=== PATIENT | female | born 1970 | race Caucasian/White ===

== ENCOUNTER 2017-01-13 15:14 | Emergency (ER) | payer BC, MEDICARE ==
[2017-01-13] MEDS ORDERED: ASPIRIN 81 MG TAB.CHEW PO ONE (15:29)
[2017-01-13] MEDS ORDERED: NITROGLYCERIN 0.4 MG/TAB BTL SL ONE (15:29)
[2017-01-13] MEDS ORDERED: ASPIRIN 325 MG TABLET.DR ONE (15:35)
[2017-01-13] MEDS ORDERED: ASPIRIN 81 MG TAB.CHEW ONE (15:36)
[2017-01-13 15:39] LABS: Hematocrit 42.3 % (37.0-47.0); Hemoglobin 14.3 gm/dL (12.5-16.0); Mean Cell Volume 92.8 fl (78-100); Mean Corpuscular Hemoglobin 31.4 pg (27-31); Mean Corpuscular Hgb Conc 33.8 g/dl (32-36); Mean Platelet Volume 11.2 fl (6.0-9.5); Neutrophil # 3.9 K/mm3 (1.3-6.0); Neutrophil % 47.3 % (42-75.0); Platelet Count 161 K/mm3 (150-450); Red Blood Count 4.56 M/mm3 (4.2-5.4); Red Cell Distribution Width 13.2 % (11.5-14.0); White Blood Count 8.2 K/mm3 (4.0-10.5)
[2017-01-13 15:53] LABS: Prothrombin Time (Patient) 10.4 Seconds (9.4-11.4)
[2017-01-13 15:54] LABS: Partial Thrombolplastin Time 24.6 Seconds (24-32)
[2017-01-13 15:59] LABS: ALT 31 U/L (19-67); AST 14 U/L (0-48); Albumin * 3.3 gm/dl (3.4-5.0); Alkaline Phosphatase * 57 U/L (50-170); Anion Gap 12.9 mmol/L (6.8-13.8); BUN/Creatinine Ratio 13.6 (9.0-21.6); Bilirubin, Total 0.3 mg/dL (0.0-1.1); Blood Urea Nitrogen 11 mg/dL (3-23); Ca. Corrected For Albumin 9.3 mg/dL (8.4-10.2); Calcium * 9.1 mg/dL (7.9-10.9); Carbon Dioxide 27.7 mmol/L (24-32.6); Chloride 105 mmol/L (97-106); Glucose * 94 mg/dL (70-110); Potassium 4.6 mmol/L (3.4-4.6); Sodium 141 mmol/L (132-142); Total Protein 6.7 gm/dL (6.2-8.2); Troponin I Less than 0.017 ng/ml (0.00-0.10)
--- NOTE | 2017-01-13 17:02 | ERNOTE ---
Chest Pain/Cardiac HPI Date of Service: 01/13/17 Chief Complaint: Chest Pain Time Seen by Provider: 01/13/17 15:51 Source: patient Exam Limitations: no limitations Immunizations: IMMUNIZATION HX Immunizations Up to Date Yes Allergies/Adverse Reactions: Allergies infliximab [From Remicade] Allergy (Verified 01/13/17 15:26) Hives tetracycline [Tetracycline] Allergy (Verified 01/13/17 15:26) Hives Home Medications: HOME MEDICATIONS Abatacept/Maltose [Orencia 250 mg Vial] 1,000 mg IV Q28D 12/31/13 [Last Taken ] Pantoprazole Sodium [Protonix] 40 mg PO DAILY 12/31/13 [Last Taken 01/03/14] Cholecalciferol (Vitamin D3) [Vitamin D3] 1,000 units PO DAILY 01/01/14 [Last Taken 01/03/14] Albuterol Sulfate/Ipratropium [Duoneb 2.5-0.5MG/3ML Soln] 3 ml IH Q4H #150 nebu 01/06/14 [Last Taken Unknown] Diclofenac Sodium [Voltaren] 75 mg PO BID 01/25/15 [Last Taken Unknown] Gabapentin 300 mg PO TID 01/13/17 [Last Taken Unknown] Ropinirole HCl 5 mg PO DAILY 01/13/17 [Last Taken Unknown] predniSONE [Prednisone] See Taper PO DAILY #18 tablet 01/13/17 [Last Taken Unknown] traZODone HCL [Trazodone HCl] 100 mg PO HS 01/13/17 [Last Taken Unknown] Narrative: 49-year-old female presenting to the emergency room with chest pain that she has had since yesterday at 8 PM. States pain is under her right and left breast. She states the pain is consistent. Date (Duration): 01/13/17 Timing: constant Severity/Quality: mild Location: substernal, other - under both breast Chest Pain Radiation: no radiation Activities at Onset: rest Modifying Factors - Improves: Present: nitroglycerin - in ed Modifying Factors - Worsens: Present: movement Nitro Today/Relief: 0.4 mg x 1 Aspirin Treatment Today: 325 mg x 1 Associated Symptoms: Present: cough. Absent: headache, dizziness, syncope, shortness of breath, nausea, vomiting, abdominal pain Prior Chest Pain/Cardiac Workup: Reports: prior chest pain Prior Treatment: Reports: recently seen Review of Systems - Review of Systems Constitutional: Present: no symptoms reported EYE: Present: no symptoms reported ENT: Present: no symptoms reported Respiratory: Present: no symptoms reported Cardiology: Present: See HPI Gastrointestinal/Abdominal: Present: no symptoms reported Genitourinary: Present: no symptoms reported Musculoskeletal: Present: other - rib pain under bilateral breasts Skin: Present: no symptoms reported Neurological: Present: no symptoms reported Endocrine: Present: no symptoms reported Hematologic/Lymphatic: Present: no symptoms reported Psych: Present: no symptoms reported - Patient's Past Medical History Patient History - Medical: Chronic Pain, Depression, Fibromyalgia, Osteoarthritis, Rheumatoid Arthritis, Other Patient History - Cardiac/Respiratory: Bronchitis Patient History - Cancer: No Hx of Cancer Patient History - Surgical Procedures: Cholecystectomy, Hysterectomy, T & A, Other Patient History - Other: None - Family History Mother Family History - Medical: Diabetes Type 2 Insulin Dependent, Fibromyalgia Family History - Cardiac/Respiratory: Hypertension Father Family History - Medical: Alcohol Abuse, Arthritis, Chronic Pain, Depression, Osteoarthritis, Rheumatoid Arthritis, Seizures Family History - Cardiac/Respiratory: Cardiomyopathy, CVA/Stroke, Myocardial Infarction, TIA Brother Family History - Medical: Alcohol Abuse, Glaucoma, Seizures Sister Family History - Medical: Depression - Social History Living Situations: spouse Abuse History: No History of abuse Psych History: Hx of Depression Smoking Status: Current every day smoker Have you smoked in the past 12 months: Yes Alcohol Use: none Drug Use: none - Immunizations Immunizations Up to Date: Yes Physical Exam - Physical Exam Narrative: 46-year-old female presenting to the emergency room with chest pain. She points to having pain under both of her breasts along her rib line. States this started last night at 8:00 and it has continued to get worse. Patient denies radiation of the pain nausea vomiting diaphoresis or shortness of breath. Patient states that this has happened before her primary care is putting her in touch with the GI doctor. She also states she has a history of bronchitis. It has had a cough over the last few days. General Appearance: Present: wd/wn, alert, no apparent distress Eye Exam: Normal inspection: bilateral Ears, Nose, Throat: Present: normal ENT inspection Neck: Present: normal inspection Respiratory: Present: no respiratory distress, wheezing Cardiovascular/Chest: Present: regular rate, rhythm Gastrointestinal/Abdominal: Present: normal bowel sounds Back Exam: Present: normal inspection Extremity Exam: Present: normal inspection Neurological Exam: Present: alert, oriented, normal mood/affect Skin Exam: Present: normal color Lymphatic Exam: Present: no adenopathy ED Progress - Results and Orders Patient's Lab Results:: I have reviewed the patient's lab results. - Vital Signs Patient's Vital Signs:: I have reviewed the patient's vital signs. Vital Signs: Vital Signs 01/13/17 01/13/17 01/13/17 15:23 15:30 15:35 Temperature 36.7 C Pulse Rate 77 78 80 Respiratory 14 10 L Rate Blood Pressure 124/75 125/80 O2 Sat by Pulse 96 96 Oximetry 01/13/17 01/13/17 16:20 16:35 Temperature Pulse Rate 72 71 Respiratory 12 12 Rate Blood Pressure 108/79 115/76 O2 Sat by Pulse 96 94 Oximetry - EKG EKG: NSR EKG read: Reviewed by me EKG Comments: Operative by ER attending, - X-Ray X-Ray #1 X-Ray: chest Interpretation: Reviewed by me X-ray Comments: TECHNIQUE: PA and lateral views of the chest were obtained. 2 images. COMPARISONS: 01/25/2015 FINDINGS: Chest PA Lateral * Hyperinflated lung volumes. No consolidation or mass. Central bronchial wall prominence noted. Calcified granuloma of the right lung base noted. No pneumothorax or pleural fluid collections. Cardiac and mediastinal silhouettes are normal. Trachea is in normal position. Bones are normal. IMPRESSION: Findings compatible with acute or chronic bronchitis versus reactive airways disease. Electronically signed by Adry Ibrahim M.D.. - Progress/Reassessment Chief Complaint: Chest Pain Progress:: Pain free at discharge Departure - Departure Clinical Impression: Bronchitis Condition: Stable Instructions: Acute Bronchitis, Chronic Bronchitis Additional Instructions: Follow-up with your primary care in the next 2-3 days. Continue home medications as directed. Follow steroid taper as directed. Return to the emergency room if you have chest pain, shortness of breath or any new symptoms or symptoms that are not controlled with [id number] pain medication. Prescriptions: predniSONE [Prednisone] See Taper PO DAILY #18 tablet
--- OUTSIDE RECORDS SUMMARY | 2017-01-13 17:07 | XMS REPORT | Continuity of Care Document ---
:1970 Author Organization [facility] [address] Care Team Providers Name Role Phone Bibi Clark Ranjan Primary Care Provider [phone] Source Comments This disclosure is being made pursuant to the [employer] program and maynot contain all information available regarding this patient.[facility] Active Allergies and Adverse Reactions Allergen Noted Date Severity Reactions Comments Albuterol 07/01/2014 Other (See Comments) Sever headache Infliximab 07/01/2014 Low Rash Tetracycline 07/01/2014 Low Rash Venlafaxine Hcl 07/01/2014 Other (See Comments) hyperactive Current Medications Be aware that medications may not be up to date as of this document. Alwaysverify current medications with the patient. Prescription Sig. Disp. Refills Start Date End Date Status benzonatate Take 200 mg by 12/09/2012 Active (TESSALON) 200 MG mouth. 1 capsule capsule(s) by mouth 3 times per day as needed Abatacept (ORENCIA Inject into Active IV) the vein. DULoxetine (CYMBALTA) Take 1 capsule 60 capsule 10/30/2015 Active 60 MG capsule by mouth 2 (two) times daily. leflunomide (ARAVA) Take 1 tablet 30 tablet 01/01/2016 Active 10 MG tablet by mouth daily. pantoprazole Take 1 tablet 30 tablet 04/29/2016 Active (PROTONIX) 40 MG by mouth daily. tablet albuterol (PROVENTIL Inhale 2 puffs 1 Inhaler 06/25/2016 Active HFA) 108 (90 BASE) into the lungs MCG/ACT inhaler every 4 (four) hours as needed for Wheezing. 2 puff(s) every 4 hours as needed rOPINIRole (REQUIP) TAKE 1 TABLET 30 tablet 08/02/2016 Active 0.5 MG tablet BY MOUTH NIGHTLY pregabalin (LYRICA) Take 1 capsule 30 capsule 08/02/2016 Active 225 MG capsule by mouth nightly. diclofenac (VOLTAREN) TAKE ONE TABLET 60 tablet 12 09/04/2016 Active 75 MG EC tablet BY MOUTH TWICE DAILY traZODone (DESYREL) Take 1 tablet 30 tablet 11 10/09/2016 Active 100 MG tablet by mouth nightly. HYDROcodone-acetamino Take 1-2 40 tablet 0 11/13/2016 Active phen (NORCO) 5-325 MG tablets by per tablet mouth every 4 (four) hours as needed for Pain. sulfamethoxazole-trim Take 1 tablet 16 tablet 0 12/24/2016 Active ethoprim (BACTRIM by mouth 2 DS,SEPTRA DS) 800-160 (two) times MG per tablet daily. gabapentin Take 1 capsule 90 capsule 5 12/09/2016 01/08/2017 (NEURONTIN) 300 MG by mouth 3 capsule (three) times daily. Hospital, Clinic, or Other Ordered Dose Route Frequency Start Date End Date Status Facility Administered Medication dexamethasone (DECADRON) 8mg IM Once 07/01/2014 Active injection Active Problems Problem Noted Date Acute pain of right knee 01/08/2017 Primary osteoarthritis of both knees 11/18/2016 Rheumatoid arthritis, unspecified (HCC) 11/13/2016 Chronic pain of both knees 09/16/2016 Chronic right shoulder pain 09/16/2016 Anxiety 04/29/2016 Adult acne 01/01/2016 Seropositive rheumatoid arthritis (HCC) 11/07/2015 Long-term use of immunosuppressant medication 11/07/2015 Type 2 diabetes mellitus: Follow up Jun 2016 03/16/2015 Overview: A1C: 5.7% March 2016 Microalbumin: Neg March 2016 Foot Exam: Eye Exam: Encounter for long-term (current) use of other medications 11/17/2014 Rheumatoid arthritis (HCC) 06/15/2014 Overview: Overview: MARCEL HENRY MD IMO 2017 load Asthma 12/09/2013 Overview: Overview: MARCEL HENRY MD Gouty arthropathy 09/23/2013 Overview: Overview: RIZWANA COULTER MD Hereditary and idiopathic peripheral neuropathy 08/09/2013 Overview: Overview: MARCEL HENRY MD Insomnia 2013 Overview: Overview: MARCEL HENRY MD Tobacco use disorder 2013 Overview: Overview: MARCEL HENRY MD Thoracic or lumbosacral neuritis or radiculitis 12/18/2012 Overview: Overview: ?radicular vs referred Severity:not controlled Chronicity:chronic KAMERON BARAJAS DO Astigmatism 08/20/2012 Overview: Overview: TRACY GARNICA OD Hypermetropia 08/20/2012 Overview: Overview: TRACY GARNICA OD Esophageal reflux 03/25/2012 Overview: Overview: MARCEL HENRY MD Disorder of bursae and tendons in shoulder region 01/27/2012 Overview: Overview: WILLIE CONTI MD Acromioclavicular (joint) (ligament) sprain and strain 01/27/2012 Overview: Overview: WILLIE CONTI MD Depressive disorder 01/10/2012 Overview: Overview: PER KEY/CELESTINO WOODARD Plica syndrome 11/22/2011 Overview: Overview: WILLIE CONTI MD Osteoarthritis of knee 10/24/2011 Overview: Overview: bilateral KATHY LUNA CNP Rheumatoid arthritis with visceral or systemic involvement ([facility]) 10/17/2011 Overview: Overview: KATHY LUNA CNP Restless legs syndrome 05/17/2011 Overview: Overview: PER GARY CNP Disorder of thyroid 05/17/2011 Overview: Overview: PER KEY/YAMILET, [employer] Goiter 05/24/2010 Overview: Overview: ERICA ABDULLAHI MD Dysphagia 04/02/2010 Overview: Overview: PER KYE/YAMILET, CELESTINO Obesity 04/02/2010 Overview: Overview: PER GARY [employer] Sleep disturbance 10/25/2008 Overview: Overview: Resolved Problems Problem Noted Date Resolved Date Diabetes 1.5, managed as type 2 ([facility]) 11/17/2014 05/30/2015 Last Assessment & Plan: Assessment: Type II diabetes mellitus ([facility]) 08/20/2012 03/23/2016 Overview: Overview: TRACY GARNICA OD Most Recent Encounters Date Type Specialty Providers Description 01/13/2017 Telephone Rheumatology Ceci Petit, RN 01/08/2017 Clinical Support Infusion Therapy Fred Mercedes Rheumatoid arthritisKristi, RN unspecified ([facility]) (Primary Dx); Rheumatoid arthritis, involving unspecified site, unspecified rheumatoid factor presence ([facility]) 01/08/2017 Office Visit Orthopedic Surgery Willie Conti, Acute pain of right MD knee (Primary Dx) 01/02/2017 Orders Only Provider, Not In System 01/01/2017 Office Visit Urology Abiel, Mixed incontinence Castillo Smith MD (Primary Dx); Vertigo 01/01/2017 Clinical Support Radiology Willie Conti, Primary osteoarthritis of both knees Bibi Randolph, RT 12/24/2016 Office Visit Urology Keith Lozano, Malaise (Primary Dx); PA-C Dizziness; Mixed incontinence 12/23/2016 Telephone Urology Lian Cain, RN 12/18/2016 Clinical Support Urology Abiel, Mixed incontinence Castillo Smith MD (Primary Dx) 12/11/2016 Clinical Support Infusion Therapy Fred Mercedes Rheumatoid arthritisKristi, RN unspecified ([facility]) (Primary Dx); Rheumatoid arthritis, involving unspecified site, unspecified rheumatoid factor presence (HCC) 12/11/2016 Telephone Urology Clinton, Other Paulina L 12/09/2016 Telephone Rheumatology Ceci Petit RN 12/05/2016 Telephone Rheumatology Marcel Henry Medication Management MD Rosalie 11/28/2016 Telephone Urology Clinton, Other Paulina L 11/27/2016 Clinical Support Radiology Abiel, Pre-operative Castillo Smith MD cardiovascular [facility] examination D, RTR 11/27/2016 Procedure visit Urology Abiel, Pre-op testing (Primary Castillo Smith MD Dx); Mixed incontinence; Urinary urgency; Pre-operative cardiovascular examination 11/25/2016 Telephone Urology Lian Cain RN 11/18/2016 Office Visit Urology Marcel Henry Mixed incontinence MD Rosalie (Primary Dx) Keith Lozano, PA-C 11/18/2016 Clinical Support Radiology Willie Conti, Primary osteoarthritis of both knees Heidi Egan, RTR 11/18/2016 Office Visit Orthopedic Surgery Willie Conti, Primary osteoarthritis of both knees (Primary Dx) 11/18/2016 Scanned Document Provider, Not In System 11/13/2016 Clinical Support Infusion Therapy Fred Mercedes Rheumatoid arthritisKristi, RN unspecified (HCC) (Primary Dx) 11/13/2016 Office Visit Rheumatology Marcel Henry Stress incontinence in WMD female (Primary Dx); Long-term use of immunosuppressant medication; Seropositive rheumatoid arthritis (HCC) 10/15/2016 Telephone Rheumatology Sasha Franklin Other LPN Social History Tobacco Use Types Packs/Day Years Used Date Current Every Day Smoker 1 25 Smokeless Tobacco: Never Used Tobacco Cessation:Counseling Given: Yes Comments: Alcohol Use Drinks/Week oz/Week Comments No 0 Standard drinks or equivalent 0.0 Alcoholic Drinks/day: ALCOHOL USE: NON-DRINKER Last Filed Vital Signs Vital Sign Reading Time Taken Blood Pressure 108/80 01/08/2017 3:38 PM CDT Pulse 72 01/08/2017 3:38 PM CDT Temperature 35.4 C (95.7 F) 01/08/2017 3:01 PM CDT Respiratory Rate 18 12/24/2016 1:41 PM [employer] Height 1.753 m (5' 9") 11/18/2016 10:44 AM [employer] Weight 104.781 kg (231 lb) 01/01/2017 3:09 PM CDT Body Mass Index 34.1 01/01/2017 3:09 PM CDT Oxygen Saturation - - Plan of Care Patient Goal Type Goal Result Component HEMOGLOBIN A1C below 7.0 Date Type Specialty Providers Description 01/24/2017 Appointment Urology Castillo Beebe MD [address] [place] [phone] (Fax) 02/03/2017 Appointment Gastroenterology Marcel Henry MD [address] [place] [address] [phone] (Fax) Red Rubalcava MD [address] [place] [address] [phone] (Fax) 02/05/2017 Appointment Infusion Therapy 03/11/2017 Appointment Neurology Castillo Beebe MD [address] [place] [phone] (Fax) Edmund Vo MD [address] [place] [phone] (Fax) 04/30/2017 Wait List Neurology 05/20/2017 Appointment Orthopedic Surgery Moses Hernandez MD [address] [place] [address] [phone] (Fax) 05/20/2017 Appointment Rheumatology Marcel Henry MD [address] [facility] [address] [place] [address] [phone] (Fax) Health Maintenance Due Date Last Done Comments Foot Exam 1982 Pneumococcal Medium Risk 19-64 yo (1 1991 of 1 - PPSV23) Tetanus/Pertussis (1 - Tdap) 1991 Pap Smear 1993 Influenza Immunization (#1) 2016 LAB-HgA1C 09/22/2016 03/23/2016, 04/04/2015, 07/19/2014 Lab-Lipids 09/22/2016 03/23/2016, 04/04/2015 Eye (Ophthalmology) Exam 01/07/2017 01/08/2016, 01/08/2016, 01/08/2016 Lab-Urine Microalbumin 03/23/2017 03/23/2016 Results from Last 3 Months Comprehensive metabolic panel (01/08/2017 3:10 PM)Only the most recent of2 resultswithin the time period is included. Component Value Range Glucose 103(H)Comment: 60-100 mg/dL Fasting Plasma Glucose (FPG)<100 MG/DL Impaired Fasting Glucose (IFG) 100-125 MG/DL Provisional Diagnosis of Diabetes Mellitus > qw=267 MG/DL (Diagnosis Must Be Confirmed) BUN, Blood 9 7-19 mg/dL Creatinine 0.8 0.6-1.2 mg/dL Glomerular Filtration Rate 89(L) >90 mL/min/1.73mm2 Estimate Glomerlular Filtration Rate 103Comment:The estimated GFR >90 mL/min/1.73mm2 Estimate- has not been validated for women or patients with serious comorbid conditions, or with extremes of body size, muscle mass, or nutritional status. Calcium 9.2 8.4-10.2 mg/dL Sodium 139 136-145 mmol/L Potassium 3.9Comment:Results may be 3.5-4.6 mmol/L falsely increased due to hemolysis. Chloride 105 99-111 mmol/L CO2 25.0 21.0-32.0 mmol/L Albumin 3.5 3.5-5.0 g/dL Total Protein 6.7Comment:Results may be 6.1-8.0 g/dL falsely increased due to hemolysis. Bilirubin Total 0.5 0.2-1.2 mg/dL Alkaline Phosphatase 63 40-150 U/L AST 17Comment:Results may be 5-34 U/L falsely increased due to hemolysis. ALT 30Comment:Results may be 0-55 u/L falsely increased due to hemolysis. Narrative Testing performed at [facility], [address] [place] [address].Special Technical Operations Officer Dom Conley MD CBC auto differential (01/08/2017 3:10 PM)Only the most recent of4 resultswithin the time period is included. Component Value Range WBC 9.4 3.1-11.0 x10^3/uL RBC 4.92 3.60-5.17 x10^6/uL Hemoglobin 15.5(H) 11.1-15.3 g/dL Hematocrit 45.1 33.7-46.0 % MCV 91.7 81.0-98.0 fL MCH 31.5 27.2-33.3 pg MCHC 34.4 31.7-35.6 g/dL RDW 13.4 10.8-14.6 % SD-RDW 44.0 37.0-50.4 fL Platelets 188 147-370 x10^3/uL MPV 11.7 9.1-12.1 fL NE% 55.1 42.0-76.0 % %LYMPH 33.5 15.0-44.0 % %MONO 7.9 4.0-13.0 % % Eosinophils 2.9 0.0-6.0 % % Basophils 0.4 0.0-1.0 % Imm Gran Relative 0.2 0.0-1.0 % NE# 5.2 1.2-7.3 x10^3/uL Lymphs # 3.1 0.6-3.5 x10^3/uL Thurston# 0.7 0.2-0.9 x10^3/uL Eosinophil # 0.3 0.0-0.4 x10^3/uL Baso# 0.0 0.0-0.1 x10^3/uL Imm Gran Absolute 0.02 0.00-0.10 x10^3/uL Specimen BLOOD Narrative Testing performed at [facility], [address] [place] [address].Special Technical Operations Officer Dom Conley MD MRI LOWER EXTREMITY JOINT WO CONTRAST (01/01/2017 2:09 PM) [place] [address] DIAGNOSTIC IMAGING Name: Kiera Erwin Ordering Phys: Willie Huddlestonjanine Age: 46Date of : 1969 Accession Number: [id number] Date of Service:01/01/2017 Gender: F EXAMINATION: MRI right knee without contrast HISTORY: Chronic right knee pain.No known injury.Pain mostly behind the patella. COMPARISON: 11/18/2011 MRI examination of the right knee was performed without contrast. Radiographs dated 11/18/2016 were reviewed. FINDINGS: In the medial compartment, there is inner margin blunting of the body of the meniscus.There is mild partial thickness chondrosis of the femoral condyle without subchondral edema. In the lateral compartment, the meniscus is intact.There is mild partial thickness chondrosis of the tibial plateau without subchondral edema. In the patellofemoral compartment, there is deep partial thickness chondrosis involving the lateral patellar facet and medial patellar facet.Matching chondrosis involves the trochlea.This is slightly progressed from prior exam There is a small knee joint effusion and Langford's cyst.The cruciate collateral ligaments appear intact.The extensor mechanism is intact.No fracture is seen IMPRESSION: 1. Slightly progressed tricompartmental knee joint chondrosis. This is most prominent in the patellofemoral compartment 2. Small knee joint effusion and Langford's cyst. 3.Inner margin blunting of the body of the medial meniscus THIS IS AN ELECTRONICALLY VERIFIED REPORT 01/02/2017 10:14 AM: Homer Nino M.D. ME:pr Procedure Note Derek, External Ris In - Josefa Jan 02, 2017 10:17 [place] [address] DIAGNOSTIC IMAGING Name: Kiera ErwinNat Ordering Phys: Willie Berry Flaquitojanine Age: 46 Date of : 1970 Accession Number: [id number] Date of Service:01/01/2017 Gender: F EXAMINATION: MRI right knee without contrast HISTORY: Chronic right knee pain. No known injury. Pain mostly behind the patella. COMPARISON: 11/18/2011 MRI examination of the right knee was performed without contrast. Radiographs dated 11/18/2016 were reviewed. FINDINGS: In the medial compartment, there is inner margin blunting of the body of the meniscus. There is mild partial thickness chondrosis of the femoral condyle without subchondral edema. In the lateral compartment, the meniscus is intact. There is mild partial thickness chondrosis of the tibial plateau without subchondral edema. In the patellofemoral compartment, there is deep partial thickness chondrosis involving the lateral patellar facet and medial patellar facet. Matching chondrosis involves the trochlea. This is slightly progressed from prior exam There is a small knee joint effusion and Langford's cyst. The cruciate collateral ligaments appear intact. The extensor mechanism is intact. No fracture is seen IMPRESSION: 1. Slightly progressed tricompartmental knee joint chondrosis. This is most prominent in the patellofemoral compartment 2. Small knee joint effusion and Langford's cyst. 3. Inner margin blunting of the body of the medial meniscus THIS IS AN ELECTRONICALLY VERIFIED REPORT 01/02/2017 10:14 AM: Homer Nino M.D. ME:pr Urinalysis with microscopic (12/24/2016 1:15 PM)Only the most recent of3 resultswithin the time period is included. Component Value Range *MADALYN TYPE Clean Catch Color, Fluid DK YELLOW(A) Yellow Clarity, Fluid Clear Clear Specific [address] 1.021 1.001-1.035 pH 6.0 5.0-8.0 Leukocyte Esterase, UA 2+(A) Negative Nitrite Negative Negative Protein Negative Negative Glucose, Urinalysis Negative Negative Ketones, UA Trace(A) Negative Urobilinogen Negative Negative Bilirubin Urine Negative Negative Blood Negative Negative WBC 11-20(A)Comment: 0-2 Culture ordered by lab if not already ordered by physician Culture ordered by lab if not already ordered by physician. RBC 0-2 0-2 Epithelial Cells, Fluid Rare <2+ Bacteria 1+(A) None Specimen Cln Catch Narrative Testing performed at [facility], [address] [place] [address].Special Technical Operations Officer Dom Conley MD Basic metabolic panel (12/24/2016 1:15 PM)Only the most recent of2 resultswithin the time period is included. Component Value Range Glucose 112(H)Comment: 60-100 mg/dL Fasting Plasma Glucose (FPG)<100 MG/DL Impaired Fasting Glucose (IFG) 100-125 MG/DL Provisional Diagnosis of Diabetes Mellitus > ae=572 MG/DL (Diagnosis Must Be Confirmed) BUN, Blood 10 7-19 mg/dL Creatinine 0.9 0.6-1.2 mg/dL Glomerular Filtration Rate 83(L) >90 mL/min/1.73mm2 Estimate Glomerlular Filtration Rate 96Comment:The estimated GFR has >90 mL/min/ 1.73mm2 Estimate- not been validated for women or patients with serious comorbid conditions, or with extremes of body size, muscle mass, or nutritional status. Calcium 9.2 8.4-10.2 mg/dL Sodium 141 136-145 mmol/L Potassium 3.7 3.5-4.6 mmol/L Chloride 105 99-111 mmol/L CO2 29.2 21.0-32.0 mmol/L Narrative Testing performed at [facility], [address] [place] [address].Special Technical Operations Officer Dom Conley MD Urine culture (12/24/2016 1:15 PM)Only the most recent of2 resultswithin the time period is included. Component Value Range Urine Culture, Routine Microbiology resultsComment: MADALYN TYPE Clean Catch RESULT NO GROWTH Narrative Testing performed at [facility], [address] [place] [address].Special Technical Operations Officer Dom Conley MD Measure post void residual (12/24/2016)XR CHEST 2 VIEWS PA AND LAT (11/27/2016 4:43 PM) Narrative XR CHEST 2 VIEWS PA AND LAT Reason: REASON FOR EXAM:->PRE OP Clinical History: pre op, no chest complaints SDP Heart size is normal and stable when compared to prior study of 10/22/2013.No pneumothorax.No pleural effusions.No pneumonia or pulmonary edema.No new pulmonary opacity. Impressions: 1.No acute pulmonary infiltrates. THIS IS AN ELECTRONICALLY SIGNED REPORT BY READING PHYSICIAN: Dr. Jay Longo D.O.2016-11-28 08:38:16 Procedure Note Derek, External Ris In - Josefa Nov 28, 2016 8:38 AM [employer] XR CHEST 2 VIEWS PA AND LAT Reason: REASON FOR EXAM:->PRE OP Clinical History: pre op, no chest complaints SDP Heart size is normal and stable when compared to prior study of 10/22/2013. No pneumothorax. No pleural effusions. No pneumonia or pulmonary edema. No new pulmonary opacity. Impressions: 1. No acute pulmonary infiltrates. THIS IS AN ELECTRONICALLY SIGNED REPORT BY READING PHYSICIAN: Dr. Jay Longo D.O. 2016-11-28 08:38:16 XR KNEE MIN 4 VIEWS (11/18/2016 9:20 AM) Narrative XR KNEE MIN 4 VIEWS [id number] RYDER Clinical History: BILATERAL KNEE PAIN, PT STATES R KNEE IS WORSE, NKI HX OF OA Technique: AP and PA standing, sunrise, and lateral views of both knees Comparison: None available Findings: 3 compartment osteoarthritic changes Noted involving the medial compartments, greater left.Spurring of the tibial spines is seen.No acute fracture or dislocation is seen. Patellas are well located.Arthritic change involving medial patellofemoral joints, greater right. Soft tissues are unremarkable. Impression: Arthritic changes without acute bony abnormality THIS IS AN ELECTRONICALLY SIGNED REPORT BY READING PHYSICIAN: Jay Grimes M.D.2016-11-18 12:13:17 Procedure Note Derek, External Ris In - Mon Nov 18, 2016 12:14 PM [employer] XR KNEE MIN 4 VIEWS [id number] RYDER Clinical History: BILATERAL KNEE PAIN, PT STATES R KNEE IS WORSE, NKI HX OF OA Technique: AP and PA standing, sunrise, and lateral views of both knees Comparison: None available Findings: 3 compartment osteoarthritic changes Noted involving the medial compartments, greater left. Spurring of the tibial spines is seen. No acute fracture or dislocation is seen. Patellas are well located. Arthritic change involving medial patellofemoral joints, greater right. Soft tissues are unremarkable. Impression: Arthritic changes without acute bony abnormality THIS IS AN ELECTRONICALLY SIGNED REPORT BY READING PHYSICIAN: Jay Grimes M.D. 2016-11-18 12:13:17
[2017-01-13 17:23] VITALS: BP 103/76
== END 2017-01-13 17:42 | disposition home or self-care (01) ==
LOC: ER 15:14
DX: J40 Bronchitis, not specified as acute or chronic (principal); F17.210 Nicotine dependence, cigarettes, uncomplicated; F32.9 Major depressive disorder, single episode, unspecified; M06.9 Rheumatoid arthritis, unspecified

== ENCOUNTER 2017-07-30 09:44 | Day surgery (SDC) | payer MEDICARE, OTHER ==
[~2017-07-30 09:44] MED LIST: RINGER'S SOLUTION,LACTATED 1,000 ML IV PRN; ceFAZolin SODIUM 1 GM in DEXTROSE 5 % IN WATER 100 ML IV PRN
[2017-07-30 10:26] LABS: Hematocrit 40.7 % (37.0-47.0); Mean Cell Volume 91.3 fl (78-100); Mean Corpuscular Hemoglobin 31.4 pg (27-31); Mean Corpuscular Hgb Conc 34.4 g/dl (32-36); Neutrophil % 56.5 % (42-75.0); Platelet Count 139 K/mm3 (150-450); Red Blood Count 4.46 M/mm3 (4.2-5.4); Red Cell Distribution Width 13.2 % (11.5-14.0); White Blood Count 7.1 K/mm3 (4.0-10.5)
[2017-07-30] MEDS ORDERED: RINGER'S SOLUTION,LACTATED 1,000 ML IV ONE ×5 (10:30→15:40)
[2017-07-30 10:42] LABS: Prothrombin Time (Patient) 10.3 Seconds (9.4-11.4)
[2017-07-30 10:43] LABS: INR 0.99 INR (0.90-1.10); Partial Thrombolplastin Time 28.1 Seconds (24-32)
[2017-07-30] MEDS ORDERED: LIDOCAINE HCL/EPINEPHRINE 50 ML VIAL IJ ONE ×2 (13:00)
[2017-07-30] MEDS ORDERED: BACITRACIN 50,000 UNITS VIAL IR ONE (13:00)
--- NOTE | 2017-07-30 16:20 | OR ---
Operative Report - Dictated Report Narrative: DATE OF PROCEDURE: 07/30/2017 INDICATION: Hypomastia, Desires bilateral breast augmentation with submuscular saline implants PREOPERATIVE DIAGNOSIS: Hypomastia, desires bilateral breast augmentation with submuscular saline implants POSTOPERATIVE DIAGNOSIS: Same PROCEDURE: Bilateral mammoplasty with submuscular placement of saline implants via inframammary fold incision SURGEON: Brynn Tong D.O. SMALL BUSINESS REPRESENTATIVE: OR staff ANESTHESIA: Gen. ESTIMATED BLOOD LOSS: Minimal URINE OUTPUT: Not measured FLUID REPLACEMENT: 1100 mL FINDINGS: Hypomastia with left breast slightly smaller than the right breast IMPLANTS: Right - [place] Smooth Round High Profile Saline implant, Style 3000, REF [id number], LOT [id number], SN [id number], 460-550cc implant filled to 480ml Left - [place] Smooth [employer] High Profile Saline implant, Style 3000, REF [id number], LOT [id number], SN [id number], 460-550cc implant filled to 530ml TECHNIQUE: Patient was taken to the operating room and placed in supine position with arms extended to the side. Preoperative markings were done prior to bringing the patient the OR. After general anesthesia was obtained, the patient's upper body was cleaned with a chlorhexidine alcohol prep. A solution of 1% lidocaine with epinephrine was injected in the subdermal and subcutaneous tissue where the incision was to be made. A 4 cm incision was made 0.5cm below the patient's natural inframammary fold. Using cautery, the avascular pocket was entered by dissecting through the subglandular tissue and lower medial insertion of the pectoralis major muscle. The pocket was expanded superiorly above the level of the areola, then laterally to the edge of the pectoralis minor muscle. After excellent hemostasis was assured, the pocket was copiously irrigated with bacitracin/water solution. A 420 mL saline sizer implant was placed within the left breast pocket and filled with 480 mL of saline. Similar dissection was performed on the patient's right side, also placing a 420 mL saline sizer implant filled to 480 mL. The breast pocket shape was fine-tuned with blunt traction on both sides. The sizers were removed, the pockets were once again copiously irrigated, and excellent hemostasis was assured. Gloves were changed and the saline implants were inserted in a similar fashion to insertion of the sizers. Adjustment of fill volumes was performed to maximize symmetry of the breast. The final fill volume was 480 mL on the right breast implant and 530 mL fill volume on the left breast implant. The subcutaneous fascia was closed with a running 3-0 Vicryl suture. The same suture was used to approximate the subdermal layer. The skin was closed with a running 4-0 Monocryl and Dermabond. Bandages were applied. Sponge, lap, instrument, and needle count correct x 2. DISPOSITION: The patient was transferred to postanesthesia care unit in good condition.
[2017-07-30] MEDS ORDERED: MORPHINE SULFATE 2 MG/ML DISP.SYRIN IV PRN (16:57)
[2017-07-30] MEDS ORDERED: oxyCODONE HCL/ACETAMINOPHEN 1 TAB TABLET PO PRN ×2 (16:58→17:15)
[2017-07-30] MEDS ORDERED: IBUPROFEN 800 MG TABLET PO PRN ×2 (16:59→17:15)
[2017-07-30 17:39] VITALS: BP 121/71
== END 2017-07-30 09:45 | disposition home or self-care (01) ==
LOC: AMB 09:44
PROVIDERS: ATTEND Obstetrics & Gynecology
PROC: 0H0V0JZ Alteration of Bilateral Breast with Synthetic Substitute, Open Approach (ICD-10-PCS; principal; 2017-07-30 12:15)
DX: N64.82 Hypoplasia of breast (principal); M05.9 Rheumatoid arthritis with rheumatoid factor, unspecified; Z79.899 Other long term (current) drug therapy
CPT/HCPCS: 19325; 36415; 85025; 85610; 85730; G0480